=== PATIENT | female | born 1975 | race American Indian/Alaskan Native ===

== ENCOUNTER 2017-10-25 21:09 | Emergency (ER) | payer SELFPAY ==
[2017-10-25 23:49] LABS: Alanine Aminotransferase 20 units/L (7-56); Albumin 3.9 g/dL (3.9-5); BUN/Creatinine Ratio 18; Blood Urea Nitrogen 7 mg/dL (7-17); Hemolysis Index 13
[2017-10-25 23:53] LABS: Bilirubin,Urine NEG (Negative); Blood,Urine NEG (Negative); Color,Urine Yellow (Yellow); Mucus,Urine 3+ /HPF; Nitrite,Urine NEG (Negative); Protein,Urine <15 mg/dL mg/dL (Negative)
[2017-10-26 00:32] LABS: Hematocrit 35.8 % (30.3-42.9); Hemoglobin 11.9 gm/dl (10.1-14.3); Mean Corpuscular HGB Conc 33 % (30-34); Mean Corpuscular Hemoglobin 31 pg (28-32); Mean Corpuscular Volume 94 fl (79-97); Platelet Count 163 K/mm3 (140-440); Red Blood Count 3.83 M/mm3 (3.65-5.03)
[2017-10-26] MEDS ORDERED: TYLENOL PO ONE (06:24)
--- NOTE | 2017-10-26 06:24 | Emergency Department Report ---
ED General Adult HPI - General Chief complaint: Weakness Stated complaint: BODY PAIN Time Seen by Provider: 10/26/17 06:16 Source: patient, RN notes reviewed Mode of arrival: Ambulatory Limitations: No Limitations - History of Present Illness Initial comments: This is a 42-year-old female who is previously known to this provider, patient denies chronic medical conditions. Patient presents to the ER with a complaint of bilateral plantar and lateral foot pain. She also complains of bilateral inguinal pain, bilateral thigh pain, lower abdominal cramping. Her pain is sharp and achy, and increases with palpation and decreases with rest. It does not radiate anywhere. Patient denies DVT and pulmonary embolus risk factors. Patient endorsed central chest pressure last of which occurred 3-4 days ago, the pressure did not radiate to the back, arms or neck, there is no vomiting or diaphoresis, patient denies headache, neck pain, irritative and obstructive urinary symptoms. The patient is undomiciled and [facility] a [facility]. -: Gradual Location: chest, abdomen, left, right, lower extremity Severity scale (0 -10): 0 Quality: aching Consistency: intermittent Improves with: rest Worsens with: movement Associated Symptoms: chest pain, malaise. denies: confusion, cough, diaphoresis , fever/chills, headaches, loss of appetite, nausea/vomiting, shortness of breath, syncope, weakness - Related Data Previous Rx's Medication Instructions Recorded Last Taken Type Acetaminophen [Tylenol Arthritis] 650 mg PO Q6HR PRN #30 tablet.er 10/26/17 Unknown Rx Aspirin [Aspirin BABY CHEW TAB] 81 mg PO QDAY #30 tab.chew 10/26/17 Unknown Rx Allergies Allergy/AdvReac Type Severity Reaction Status Date / Time No Known Allergies Allergy Unverified 10/25/17 22:31 ED Review of Systems ROS: Stated complaint: BODY PAIN Other details as noted in HPI ED Past Medical Hx - Past Medical History Previous Medical History?: No - Surgical History Past Surgical History?: No - Social History Smoking Status: Never Smoker Substance Use Type: None - Medications Home Medications: Home Medications Medication Instructions Recorded Confirmed Last Taken Type Acetaminophen [Tylenol Arthritis] 650 mg PO Q6HR PRN #30 tablet.er 10/26/17 Unknown Rx Aspirin [Aspirin BABY CHEW TAB] 81 mg PO QDAY #30 tab.chew 01/11/18 Unknown Rx ED Physical Exam - General Limitations: No Limitations General appearance: alert, in no apparent distress - Head Head exam: Present: atraumatic, normocephalic - Eye Eye exam: Present: normal appearance, EOMI. Absent: nystagmus - ENT ENT exam: Present: normal exam, normal orophraynx, mucous membranes moist, normal external ear exam - Neck Neck exam: Present: normal inspection, full ROM. Absent: tenderness, meningismus - Respiratory Respiratory exam: Present: normal lung sounds bilaterally, chest wall tenderness. Absent: respiratory distress - Cardiovascular Cardiovascular Exam: Present: regular rate, normal rhythm, normal heart sounds. Absent: systolic murmur, diastolic murmur, rubs, gallop - GI/Abdominal GI/Abdominal exam: Present: soft, normal bowel sounds. Absent: distended, tenderness, guarding, rebound, rigid, pulsatile mass - Extremities Exam Extremities exam: Present: normal inspection, full ROM, tenderness (during inguinal and thigh exam, escorted by nursing IMER ELIAS), normal capillary refill, other (there is no palpable cord. There is negative Homans sign. There is no erythema or tenderness in the calf. Bilateral thighs and proximal inguinal region nontender with no redness, pus or streaking. The bilateral lateral aspects of the feet are somewhat tender, there is also plantar tenderness). Absent: pedal edema, joint swelling, calf tenderness - Back Exam Back exam: Present: normal inspection, full ROM. Absent: tenderness, CVA tenderness (R), paraspinal tenderness, vertebral tenderness - Neurological Exam Neurological exam: Present: alert, oriented X3, CN II-XII intact, normal gait, other (Extraocular movements intact. Tongue midline. No facial droop. Facial sensation intact to light touch in the V1, V2, V3 distribution bilaterally. 5 and 5 strength in 4 extremities.. Sensation is intact to light touch in 4 extremities.). Absent: motor sensory deficit - Psychiatric Psychiatric exam: Present: normal affect, normal mood - Skin Skin exam: Present: warm, dry, intact, normal color. Absent: rash ED Course Vital Signs 10/25/17 10/26/17 10/26/17 22:24 03:06 03:09 Temperature 99 F Pulse Rate 89 69 Respiratory 18 18 18 Rate Blood Pressure 120/72 Blood Pressure 131/72 [Right] O2 Sat by Pulse 100 99 99 Oximetry 10/26/17 10/26/17 10/26/17 03:35 05:20 06:57 Temperature 98.4 F Pulse Rate 73 62 Respiratory 16 12 12 Rate Blood Pressure Blood Pressure 110/67 91/51 [Right] O2 Sat by Pulse 100 100 Oximetry 10/26/17 07:26 Temperature 98.8 F Pulse Rate 68 Respiratory 16 Rate Blood Pressure Blood Pressure 97/59 [Right] O2 Sat by Pulse 100 Oximetry ED Medical Decision Making - Lab Data Result diagrams: 10/25/17 00:05 10/25/17 23:00 Vital Signs 10/25/17 10/26/17 10/26/17 22:24 03:06 03:09 Temperature 99 F Pulse Rate 89 69 Respiratory 18 18 18 Rate Blood Pressure 120/72 Blood Pressure 131/72 [Right] O2 Sat by Pulse 100 99 99 Oximetry 10/26/17 10/26/17 10/26/17 03:35 05:20 06:57 Temperature 98.4 F Pulse Rate 73 62 Respiratory 16 12 12 Rate Blood Pressure Blood Pressure 110/67 91/51 [Right] O2 Sat by Pulse 100 100 Oximetry 10/26/17 07:26 Temperature 98.8 F Pulse Rate 68 Respiratory 16 Rate Blood Pressure Blood Pressure 97/59 [Right] O2 Sat by Pulse 100 Oximetry Lab Results 10/25/17 10/25/17 10/25/17 Range/Units 00:05 23:00 23:27 WBC 3.1 L (4.5-11.0) K/mm3 RBC 3.83 (3.65-5.03) M/mm3 Hgb 11.9 (10.1-14.3) gm/dl Hct 35.8 (30.3-42.9) % MCV 94 (79-97) fl MCH 31 (28-32) pg MCHC 33 (30-34) % RDW 14.0 (13.2-15.2) % Plt Count 163 (140-440) K/mm3 Sodium 140 (137-145) mmol/L Potassium 3.3 L (3.6-5.0) mmol/L Chloride 100.0 (98-107) mmol/L Carbon Dioxide 24 (22-30) mmol/L Anion Gap 19 mmol/L BUN 7 (7-17) mg/dL Creatinine 0.4 L (0.7-1.2) mg/dL Estimated GFR > 60 ml/min BUN/Creatinine Ratio 18 % Glucose 82 (65-100) mg/dL Calcium 9.0 (8.4-10.2) mg/dL Total Bilirubin 0.70 (0.1-1.2) mg/dL AST 22 (5-40) units/L ALT 20 (7-56) units/L Alkaline Phosphatase 41 (35-129) units/L Troponin T < 0.010 (0.00-0.029) ng/mL Total Protein 6.6 (6.3-8.2) g/dL Albumin 3.9 (3.9-5) g/dL Albumin/Globulin Ratio 1.4 % Urine Color Yellow (Yellow) Urine Turbidity Clear (Clear) Urine pH 5.0 (5.0-7.0) Ur Specific [place] 1.018 (1.003-1.030) Urine Protein <15 mg/dl (Negative) mg/dL Urine Glucose (UA) Neg (Negative) mg/dL Urine Ketones Neg (Negative) mg/dL Urine Blood Neg (Negative) Urine Nitrite Neg (Negative) Urine Bilirubin Neg (Negative) Urine Urobilinogen 4.0 (<2.0) mg/dL Ur Leukocyte Esterase Neg (Negative) Urine WBC (Auto) 5.0 (0.0-6.0) /HPF Urine RBC (Auto) 1.0 (0.0-6.0) /HPF U Epithel Cells (Auto) 4.0 (0-13.0) /HPF Urine Mucus 3+ /HPF Urine HCG, Qual (Negative) 10/25/17 Range/Units 23:27 WBC (4.5-11.0) K/mm3 RBC (3.65-5.03) M/mm3 Hgb (10.1-14.3) gm/dl Hct (30.3-42.9) % MCV (79-97) fl MCH (28-32) pg MCHC (30-34) % RDW (13.2-15.2) % Plt Count (140-440) K/mm3 Sodium (137-145) mmol/L Potassium (3.6-5.0) mmol/L Chloride (98-107) mmol/L Carbon Dioxide (22-30) mmol/L Anion Gap mmol/L BUN (7-17) mg/dL Creatinine (0.7-1.2) mg/dL Estimated GFR ml/min BUN/Creatinine Ratio % Glucose (65-100) mg/dL Calcium (8.4-10.2) mg/dL Total Bilirubin (0.1-1.2) mg/dL AST (5-40) units/L ALT (7-56) units/L Alkaline Phosphatase (35-129) units/L Troponin T (0.00-0.029) ng/mL Total Protein (6.3-8.2) g/dL Albumin (3.9-5) g/dL Albumin/Globulin Ratio % Urine Color (Yellow) Urine Turbidity (Clear) Urine pH (5.0-7.0) Ur Specific [place] (1.003-1.030) Urine Protein (Negative) mg/dL Urine Glucose (UA) (Negative) mg/dL Urine Ketones (Negative) mg/dL Urine Blood (Negative) Urine Nitrite (Negative) Urine Bilirubin (Negative) Urine Urobilinogen (<2.0) mg/dL Ur Leukocyte Esterase (Negative) Urine WBC (Auto) (0.0-6.0) /HPF Urine RBC (Auto) (0.0-6.0) /HPF U Epithel Cells (Auto) (0-13.0) /HPF Urine Mucus /HPF Urine HCG, Qual Negative (Negative) - EKG Data When compared to previous EKG there are: previous EKG unavailable 10/26/17 08:23 Sinus, 61 bpm, motion artifact, normal intervals, not morphologically consistent with ST elevation myocardial infarction, normal axis - Medical Decision Making Differential diagnosis, including but not limited to: Plantar fasciitis, myositis, costochondritis, muscular pain Assessment and plan: 42-year-old female with a primary complaint of foot pain, walks with a steady gait, no redness, pus or streaking, no risk factors for DVT or pulmonary embolus, low risk by well's criteria, perc negative, also endorse atypical chest pain, the last episode of which was days ago, troponin negative 1, EKG unremarkable 1, low risk by WALDO score, low risk by heart score, as per the [employer] clinical policy, myocardial infarction may be excluded with 1 set of cardiac enzymes as symptoms have been present for greater than 8 hours. Patient currently sleeping quite comfortably in a stretcher, has no distress, vital signs have remained unremarkable, patient has been observed in the ER for over 10 hours without clinical decompensation. There does not appear to be an emergent condition at this time , and the patient is suitable to follow-up in outpatient primary care doctor. Compartments are soft, equal pulses in the bilateral upper and lower extremities , no pain with passive range of motion of the digits or lower extremities, therefore myositis, compartment syndrome very unlikely. Critical care attestation.: If time is entered above; I have spent that time in minutes in the direct care of this critically ill patient, excluding procedure time. ED Disposition Clinical Impression: Foot pain, History of chest pain Disposition: TO HOME OR SELFCARE Is pt being admited?: No Does the pt Need Aspirin: No Condition: Stable Additional Instructions: Take medications as needed/directed. Follow up with a primary care doctor within the next 7-10 days. Return to the ER right away with new pain, worsened pain, migration of pain, fevers, chills, lethargy, irritability, projectile vomiting, change in mental status, confusion, inability to tolerate liquid feeds. Referrals: PRIMARY CAREMD [Primary Care Provider] - 3-5 Days [facility] [Provider Group] - 3-5 Days
[2017-10-26 06:37] LABS: HCG Qualitative,Urine Negative (Negative)
[2017-10-26] MEDS ORDERED: MOTRIN PO ONE (08:20)
[2017-10-26 10:09] VITALS: BP 93/53
--- NOTE | 2017-10-26 15:52 | XRay Report ---
XRAY BILATERAL FOOT THREE VIEWS EACH: 10/26/17 CLINICAL: Bilateral foot pain. FINDINGS: Right: Normal bones and joints. No fracture or dislocation. Normal soft tissues. Left: Normal bones and joints. No fracture or dislocation. Normal soft tissues. IMPRESSION: Normal study.
== END 2017-10-26 10:32 | disposition home or self-care (01) ==
LOC: ED 21:09
DX: M79.671 Pain in right foot (principal); M79.672 Pain in left foot; R07.9 Chest pain, unspecified; M79.652 Pain in left thigh; M79.651 Pain in right thigh; R10.30 Lower abdominal pain, unspecified; G89.29 Other chronic pain
CPT/HCPCS: 36415; 80053; 81001; 81025; 82550; 83880; 84484; 85027; 93005; 93010